=== PATIENT | female | born 1990 | race Asian ===

== ENCOUNTER 2023-10-13 13:59 | Emergency (ER) | payer OTHER ==
[~2023-10-13] VITALS: Ht 162.6 cm; Wt 78.5 kg
[2023-10-13 14:00] VITALS: BP_SYST 124; PULSE 89; RESP 18; TEMP 97.7; O2SAT 98
[2023-10-13] MEDS ORDERED: HYDROcodone/ACETAMIN 10-325 MG TAB PO ONE (14:45)
[2023-10-13 15:35] LABS: BASOPHILS % (AUTO) 0.4 % (0.0-2.0); EOSINOPHILS # (AUTO) 0.1 K/uL (0.0-0.4); HEMATOCRIT 32.6 % (36-48); HEMOGLOBIN 11.6 g/dL (12.0-16.0); LYMPHOCYTES # (AUTO) 1.2 K/uL (1.0-5.5); MEAN CORPUSCULAR HEMOGLOBIN 30 pg (27-31); MEAN CORPUSCULAR HGB CONC 36 % (32-36); MEAN CORPUSCULAR VOLUME 85 fL (79.0-98.0); MONOCYTES # (AUTO) 0.5 K/uL (0.0-1.0); MONOCYTES % (AUTO) 5.9 % (1.7-9.3); NEUTROPHILS # (AUTO) 6.7 K/uL (1.8-7.7); NEUTROPHILS % (AUTO) 78.7 % (40.0-70.0); PLATELET COUNT (AUTO) 199 K/uL (130-430); RED BLOOD CELL COUNT(AUTO) 3.85 MIL/uL (4.2-6.2); WHITE BLOOD COUNT (AUTO) 8.5 K/uL (4.8-10.8)
[2023-10-13 15:50] LABS: ERYTHROCYTE SEDIMENTATION RATE 22 MM/HR (0-20)
[2023-10-13 15:53] LABS: PROTHROMBIN TIME 9.9 SECS (9.5-12.5)
[2023-10-13] MEDS ORDERED: ACET1TAB93 PO (16:16)
[2023-10-13 16:30] LABS: CALCIUM 8.4 mg/dL (8.4-11.0); CREATININE 0.44 mg/dL (0.55-1.30); POTASSIUM 3.8 mmol/L (3.5-5.1); URIC ACID 4.6 mg/dL (2.4-7.0)
== END 2023-10-13 16:30 | disposition home or self-care (01) ==
LOC: SED 13:59
DX: M25.561 Pain in right knee (principal); Z87.39 Personal history of other diseases of the musculoskeletal system and connective tissue; Z79.899 Other long term (current) drug therapy
CPT/HCPCS: 36415; 73560-TC; 76801; 80048; 84550; 85025; 85610-TC; 85651-TC; 85730-TC; 93971; 99284